=== PATIENT | female | born 1985 | race Caucasian/White ===

== ENCOUNTER → 2016-10-09 | Outpatient (CLI) | payer OTHER ==
[~2016-10-09] MED LIST: CALC500C3 PO; PRENTAB26 PO
[2016-10-09 14:56] LABS: URINE APPEARANCE CLEAR (CLEAR); URINE BILIRUBIN NEG (NEG); URINE COLOR YELLOW; URINE NITRITE NEG (NEG); URINE PH 6.5 (4.5-7.5); URINE SPECIFIC GRAVITY 1.011 (1.000-1.030); UROBILINOGEN NEG (NEG)
[2016-10-09 15:02] LABS: MANUAL MICROSCOPIC REQUIRED? NO; REVIEW REQ? NO
== END | disposition home or self-care (01) ==
LOC: C.LABSPEC 13:46
PROVIDERS: ATTEND Obstetrics & Gynecology
DX: O09.91 Supervision of high risk pregnancy, unspecified, first trimester (principal)

== ENCOUNTER → 2016-10-19 | Outpatient (CLI) | payer OTHER ==
[2016-10-22 07:27] LABS: CHLAMYDIA TRACH RNA*** NOT DETECTED (NOT DETECTED); GC (NEIS GONORRHOEAE)RNA** NOT DETECTED (NOT DETECTED)
== END | disposition home or self-care (01) ==
LOC: C.LABSPEC 13:53
PROVIDERS: ATTEND Obstetrics & Gynecology
DX: O09.91 Supervision of high risk pregnancy, unspecified, first trimester (principal); Z3A.00 Weeks of gestation of pregnancy not specified

== ENCOUNTER → 2016-10-31 | Outpatient (CLI) | payer OTHER ==
[2016-10-31 12:08] LABS: BASO % 0.3 %; BASO ABS # 0.02 K/uL (0-0.2); COMPLETE YES; EOS % 1.4 %; HEMATOCRIT 38.4 % (37-47); IG% 0.1 %; LYMPH % 22.7 %; LYMPH ABS # 1.74 K/uL (1.2-3.4); MEAN CORPUSCULAR HEMOGLOBIN 30.8 pg (25-34); MEAN CORPUSCULAR HGB CONC 36.2 g/dl (32-36); MEAN PLATELET VOLUME 10.6 fL (7.4-10.4); MONO % 5.6 %; NEUT % 69.9 %; PLATELET COUNT 187 K/uL (130-400); RED BLOOD COUNT 4.52 M/uL (4.2-5.4); WHITE BLOOD COUNT 7.66 K/uL (4.8-10.8)
== END | disposition home or self-care (01) ==
LOC: C.LAB1850 09:06
PROVIDERS: ATTEND Obstetrics & Gynecology
DX: O09.91 Supervision of high risk pregnancy, unspecified, first trimester (principal); Z3A.00 Weeks of gestation of pregnancy not specified

== ENCOUNTER → 2017-01-10 | Outpatient (CLI) | payer OTHER ==
[2017-01-10 15:25] LABS: GTGD 50 Grams
== END | disposition home or self-care (01) ==
LOC: C.LAB1850 12:42
PROVIDERS: ATTEND Obstetrics & Gynecology
DX: O09.92 Supervision of high risk pregnancy, unspecified, second trimester (principal)

== ENCOUNTER → 2017-04-30 | Outpatient (CLI) | payer OTHER ==
[~2017-04-30] MED LIST changes: +MTR600X PO; +OXYC-57 PO; +PREN1TAB29
--- NOTE | 2017-04-30 17:56 | HISTORY & PHYSICAL EXAMINATION ---
DATE OF ADMISSION: 04/30/2017 PREOPERATIVE DIAGNOSES: 1. Intrauterine at 37 and 2/7 weeks. 2. History of a previous vertical abdominal myomectomy in 2015. 3. Bilateral pyelectasis of the fetus on ultrasound. 4. Desires permanent surgical sterilization. HISTORY OF PRESENT ILLNESS: The patient is a 31-year-old white female 2, para 1-0-0-1 who presents for repeat section and sterilization given her history of previous vertical abdominal myomectomy. The patient's first was in 2014, she underwent a delivery in October of 2014 secondary to a large obstructing posterior 10 cm fibroid. Subsequent to that, the patient in 2015 had a large vertical incision over a posterior 10 cm fibroid for removal, it was recommended that she have repeat section prior to the onset of labor after 37 weeks in this . Her first was delivered of an 8 pound 4 ounce male. This has been complicated by pyelectasis noted on ultrasound, the last measurement on 04/05/2017 revealed the right pelvis measuring 6.2 mm and the left pelvis measuring 5.8 mm. The patient declined MFM consult. This was done at 32 weeks. The plan is for evaluation of the baby after delivery. Additionally, the patient is desirous of permanent surgical sterilization. The patient notes good movement, no labor symptoms. PAST OBSTETRICS AND GYNECOLOGICAL HISTORY: As noted above. She denies history of abnormal Pap smears or sexually transmitted illnesses. ALLERGIES: No known drug allergies, but she does have a SENSITIVITY TO LATEX. MEDICATIONS: Include vitamins. PAST MEDICAL HISTORY: The patient is healthy. Denies thyroid disease, asthma, heart disease, heart murmur, diabetes, kidney or liver problems. 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 PAST SURGICAL HISTORY: Includes the abdominal myomectomy in October of 2015, in October of 2014. She had keloiding of her vertical midline incision with both surgeries. SOCIAL HISTORY: The patient denies tobacco, alcohol or drug use. FAMILY HISTORY: Noncontributory. PHYSICAL EXAMINATION: GENERAL: This is a well-developed, well-nourished white female in no acute distress. VITAL SIGNS: Blood pressure 110/78, weight 192 pounds. NECK: Supple without thyromegaly or lymphadenopathy. CHEST: Clear to auscultation bilaterally. CARDIOVASCULAR: Regular rate and rhythm without murmurs, gallops or rubs. ABDOMEN: Gravid, soft and nontender. PELVIC: There is a vertical midline incision that is partially keloided. EXTREMITIES: Benign. PELVIC: Deferred. LABORATORY DATA: Blood type A positive, antibody negative, rubella immune, RPR nonreactive, hepatitis B negative, HIV negative, chlamydia and gonorrhea cultures negative, cystic fibrosis screening negative, GTT x2 negative, panorama screen low risk. GBS pending at the time of this dictation. ASSESSMENT: This patient is a 31-year-old 2, para 1-0-0-2, with a history of a section in October 2014 for an obstructing posterior fibroid and then a subsequent abdominal myomectomy in 2016. She presents today for section at 37 weeks given the previous history of vertical incisions on the uterus. Additionally, she desires permanent surgical sterilization. The risks of the procedure were discussed with the patient including the risks of bleeding that might require transfusion, infection, poor wound healing, damage to surrounding structures including bowel, bladder, vessels, nerves and ureters with need for further surgery, hospitalization or intervention, risk of urinary retention, risk of DVT or PE, risk of any surgery including heart attack, blood clot, stroke or . The other options for control were discussed with the patient including barriers, hormones, long-term reversible contraceptive options and vasectomy. We discussed the irreversibility of this procedure and the regret that she might have after having the procedure. We discussed that nothing is 100% and that if she conceived after this procedure there is a high risk of ectopic . The patient expresses understanding, desires to proceed with sterilization. Surgery is planned for May 06.
== END | disposition home or self-care (01) ==
LOC: C.LABSPEC 16:46
PROVIDERS: ATTEND Obstetrics & Gynecology
DX: O09.93 Supervision of high risk pregnancy, unspecified, third trimester (principal); Z3A.00 Weeks of gestation of pregnancy not specified

== ENCOUNTER 2017-05-06 05:41 | Inpatient (IN) | payer OTHER ==
[2017-05-06] VITALS (16 sets, daily range): BP systolic 107–122; BP diastolic 70–83; PULSE 71–85; TEMP 36.5–37.1; O2SAT 93–100; Ht 165.1 cm; Wt 86.4 kg
[~2017-05-06] VITALS: Ht 165.1 cm; Wt 86.4 kg
[~2017-05-06 05:41] MED LIST changes: -MTR600X PO; -OXYC-57 PO; -PREN1TAB29
[2017-05-06] MEDS ORDERED: CEFAZOLIN IV 2,000 MG in SYRINGE 0 ML IV SCH (06:00)
[2017-05-06] MEDS ORDERED: CITRIC ACID/SODIUM CITRATE 15 ML UDC PO SCH (06:00)
[2017-05-06 06:06] LABS: BASO % 0.2 %; BASO ABS # 0.02 K/uL (0-0.2); HEMATOCRIT 30.9 % (37-47); HEMOGLOBIN 10.6 g/dL (12.0-16.0); IG# 0.03 K/uL (0.00-0.02); LYMPH % 27.2 %; LYMPH ABS # 2.74 K/uL (1.2-3.4); MEAN CELL VOLUME 81.1 fL (80-100); MEAN CORPUSCULAR HEMOGLOBIN 27.8 pg (25-34); MEAN PLATELET VOLUME 10.5 fL (7.4-10.4); MONO ABS # 0.81 K/uL (0.11-0.59); NEUT % 63.3 %; NEUT ABS # 6.39 K/uL (1.4-6.5); PLATELET COUNT 146 K/uL (130-400); RED CELL DISTRIBUTION WIDTH CV 13.2 % (11.5-14.5); RED CELL DISTRIBUTION WIDTH SD 38.7 fL (36.4-46.3); WHITE BLOOD COUNT 10.09 K/uL (4.8-10.8)
[2017-05-06] MEDS: LACTATED RINGER'S 1000ML 1,000 ML IV SCH ×2 (06:11→06:57)
[2017-05-06] MEDS ORDERED: PREN1TAB29 (06:17)
[2017-05-06 06:22] LABS: MEAN CORPUSCULAR HGB CONC 34.3 g/dl (32-36)
[2017-05-06] MEDS ORDERED: FENTANYL CITRATE INJ 50 MCG/1 ML 2 ML VIAL ONE (07:42)
[2017-05-06] MEDS ORDERED: MoRPHine SULFATE PF 1 MG/ML 10 ML AMP/VIAL ONE (07:42)
[2017-05-06] MEDS ORDERED: ONDANSETRON INJ 2 MG/ML 2 ML VIAL ONE (08:30)
[2017-05-06] MEDS ORDERED: LACTATED RINGER'S 1000ML 1,000 ML IV SCH (08:44)
[2017-05-06] MEDS ORDERED: OXYCODONE/ACETAMINOPHEN 5-325 TAB PO PRN ×2 (08:45)
[2017-05-06] MEDS ORDERED: LANOLIN OINT EXT PRN (08:45)
[2017-05-06] MEDS ORDERED: DIPHTHERIA/TETANUS/PERTUSSIS 0.5 ML SYR/VIAL IM. ONE (08:45)
[2017-05-06] MEDS ORDERED: SUPERCREAM 0.870 % 15GM JAR EXT PRN (08:45)
[2017-05-06] MEDS ORDERED: MEPERIDINE HCL 50 MG/ML CARP IV PRN ×2 (08:45)
[2017-05-06] MEDS ORDERED: DiphenhydrAMINE HCL 50 MG/ML VIAL IV PRN ×2 (08:45→09:45)
[2017-05-06] MEDS ORDERED: DC PCA PRN (08:45)
[2017-05-06] MEDS ORDERED: KETOROLAC TROMETHAMINE 30 MG/ML VIAL IV. PRN ×3 (08:45→09:45)
[2017-05-06] MEDS ORDERED: KETOROLAC TROMETHAMINE 30 MG/ML VIAL ONE (08:46)
[2017-05-06] MEDS ORDERED: EpHEDrine SULFATE 50MG/5ML SYR ONE (08:48)
[2017-05-06] MEDS ORDERED: PHENYLEPHRINE 100MCG/ML 5ML SYR ONE (08:48)
--- NOTE | 2017-05-06 09:03 | [facility] Post Operative Brief Note ---
Immediate Operative Summary Operative Date May 06, 2017. Pre-Operative Diagnosis 1. IUP at 37 2/7 weeks. 2. History of previous vertical abdominal myomectomy in 2016. 3. Bilateral Pyelectasis of fetus on ultrasound 4. Desires permanent surgical sterilization. Post-Operative Diagnosis Same Procedure(s) Performed Repeat low uterine transverse caesarean section with the of a live male child at 0810. In addition, bilateral fimbriectomy was performed. Surgeon Dr. Va Newman Audio Installer Surgeon(s) Dr. Ronald Bell, Dr. Harriett Sheehan Estimated Blood Loss 600ml Findings Viable male. Ampullary portion of the right fallopian tube directly adhered to the right ovary. Otherwise, normal appearing uterus, fallopian tubes and ovaries. Specimens A; Placenta-hold B; Cord blood C: Cord gases D: Portion of R Fallopian tube E: Portion of L Fallopian tube Drains duckworth Anesthesia spinal Complication(s) None Disposition L&D
--- NOTE | 2017-05-06 09:23 | OPERATIVE REPORT ---
DATE OF OPERATION: 05/06/2017 PREOPERATIVE DIAGNOSES: 1. Intrauterine at 37 and 2/7 weeks. 2. History of previous section. 3. History of previous 10-cm posterior myomectomy. 4. Desires permanent surgical sterilization. POSTOPERATIVE DIAGNOSES: Same. PROCEDURES: 1. Repeat lower transverse section. 2. Bilateral fimbriectomy. SURGEON: Dr. Va Newman. ANESTHESIA: Spinal. ESTIMATED BLOOD LOSS: 600 mL. FLUIDS: 1000 mL. URINE OUTPUT: 150 mL of clear yellow urine drained from the bladder at the end of the procedure. INDICATIONS: The patient is a 2, para 1-0-0-1 with a history of a previous section and then a subsequent myomectomy of a 10-cm posterior fibroid that breached the uterine cavity. She therefore presents for repeat section at 37 weeks prior to the onset of labor. FINDINGS: Normal uterus, tubes, and ovaries were noted bilaterally. However, there were adhesions of the right tube to the right ovary, making a [place] tubal ligation difficult. Therefore, bilateral fimbriectomy was performed. COMPLICATIONS: None. DRAINS: Segura. DISPOSITION: To recovery room in stable condition. DESCRIPTION OF PROCEDURE: The patient was taken to the operating room, where she was identified verbally and by bracelet. She was seated on the operating table, where a spinal anesthetic was placed. She was then placed in dorsal supine position with leftward tilt. A Segura catheter was placed sterilely. She was prepped and draped in normal sterile fashion. The anesthetic was tested and found to be adequate. A time-out was held identifying correct patient, procedure, positioning and antibiotics. Attention was then turned to the abdomen, where the patient's vertical midline keloid scar was excised using the knife. The knife was then used to take the midline incision down to the fascia. The fascia was incised in the midline both with the knife and scissors. The muscles were bluntly and the peritoneum was entered by grasping bilaterally with snaps and entering with scissors. There were no adhesions noted to the anterior abdominal wall. Therefore, the peritoneum was taken superiorly and inferiorly with good visualization of the bladder. The incision was stretched. The bladder blade was placed. The vesicouterine peritoneum was identified, grasped with a snap, entered with scissors and the bladder flap was created digitally. The bladder blade was replaced. Hysterotomy incision was scored with the knife. The uterus was entered with a snap. Clear fluid was noted. The incision was stretched with the cutting machine operator helper's fingers. The cutting machine operator helper's hand was gently placed in the uterus and the head was delivered through. The nose and mouth were bulb suctioned. Loose nuchal cord x1 was reduced and rest of the infant was then delivered without difficulty. The was vigorous and crying on the surgical field. The nose and mouth were again bulb suctioned. The cord was clamped and cut. The infant was handed off to waiting pediatricians for drying and attention. Cord blood and segment were obtained. The placenta was manually extracted. The uterus was exteriorized and cleared of all clot and debris with moistened laparotomy sponges. The hysterotomy incision was repaired with 2 layers, the first a running locked layer of 0 Vicryl and the second in an imbricating layer of 0 Vicryl. Attention was then turned to the tubes. On the right, the tube was in direct adherence to the ovary and making it difficult to perform a [place] tubal ligation. Therefore, a fimbriectomy was performed on the right. The end of the tube was grasped with a curved Darlene. The tube was removed. It was suture ligated with a stick tie of 3-0 Vicryl and a free tie. This was performed in a similar fashion on the left side, where the fimbriated end was clamped using a curved Darlene. It was removed with scissors and as stick tied with 3-0 Vicryl and then a free tie. Hemostasis was noted to be excellent. The incision was again inspected and found to be hemostatic. The uterus was reanteriorized. An area of oozing was attended to with 1 [id number] suture of 0 Vicryl. Hemostasis was then noted to be excellent. The fascia was then reapproximated with #1 PDS starting on the edges and meeting in the midline. The subcuticular tissue was copiously irrigated with warm normal saline and bleeding was attended to with Bovie electrocautery. The edges were undermined using the Bovie electrocautery. Then, using horizontal mattress suture of 2-0 plain gut suture, the subcuticular tissue was reapproximated. The skin was then closed with a subcuticular stitch of 4-0 Vicryl. The procedure was thus terminated. All sponge, lap, and needle counts were correct x2. The patient tolerated the procedure well and was taken to recovery room in stable condition. I attest to the content of the Intraoperative Record and any orders documented therein. Any exception s are noted below.
[2017-05-06] MEDS ORDERED: CARBOPROST TROMETHAMINE 250 MCG/ML AMP IM ONE (09:28)
[2017-05-06] MEDS ORDERED: SODIUM CHLORIDE 0.9% 1000ML 1,000 ML IV PRN (09:33)
[2017-05-06] MEDS ORDERED: LACTATED RINGER'S 1000ML 500 ML IV PRN (09:33)
[2017-05-06] MEDS ORDERED: NALOXONE HCL INJ 1 MG in SODIUM CHLORIDE 0.9% 1000ML 1,000 ML IV PRN ×4 (09:33)
[2017-05-06] MEDS ORDERED: NALOXONE HCL INJ 0.08 MG in SYRINGE 1.8 ML IV PRN (09:33)
[2017-05-06] MEDS ORDERED: ONDANSETRON INJ 2 MG/ML 2 ML VIAL IV PRN ×2 (09:45)
[2017-05-06] MEDS ORDERED: EpHEDrine SULFATE INJ 50 MG/ML AMP IV PRN ×2 (09:45)
[2017-05-06] MEDS ORDERED: ACETAMINOPHEN 1000 MG/100 ML IV IV ONE (09:45)
[2017-05-06] MEDS ORDERED: NO NARCOTICS OR SEDATIVES SCH (09:45)
[2017-05-06] MEDS ORDERED: NALOXONE HCL 0.4 MG/1 ML VIAL/CARP IV PRN (09:45)
[2017-05-06] MEDS ORDERED: NALBUPHINE HCL INJ 10 MG/ML AMP IV PRN (09:45)
[2017-05-06] MEDS ORDERED: PROMETHAZINE HCL INJ 12.5 MG in SODIUM CHLORIDE 0.9% 50ML 50 ML IV PRN (09:45)
[2017-05-06] MEDS ORDERED: MoRPHine SULFATE 2 MG/ML CARP IV PRN (09:45)
[2017-05-06] MEDS ORDERED: ATROPINE SULFATE 0.1 MG/ML 5ML SYR IV PRN (09:45)
[2017-05-06] MEDS ORDERED: PROMETHAZINE HCL INJ 25 MG in SODIUM CHLORIDE 0.9% 50ML 50 ML IV PRN (09:45)
[2017-05-06] MEDS ORDERED: MoRPHine SULFATE PF 1 MG/ML 10 ML AMP/VIAL EPI PRN (09:45)
--- NOTE | 2017-05-06 10:41 | Anesthesiology Progress Note ---
Anesthesia Post Op Note Date & Time May 06, 2017 at 10:41 Notes Mental Status: alert / awake / arousable, participated in evaluation Nausea / Vomiting: adequately controlled Pain: adequately controlled Airway Patency, RR, SpO2: stable & adequate BP & HR: stable & adequate Hydration State: stable & adequate Neuraxial Anesthesia: was administered, sensory block is resolving Anesthetic Complications: no major complications apparent
[2017-05-06] MEDS: OXYTOCIN INJ 20 UNITS in LACTATED RINGER'S 1000ML 1,000 ML IV SCH ×2 (10:42→19:06)
[2017-05-06] MEDS: SIMETHICONE 80 MG CHEW PO SCH ×3 (13:25→20:55)
[2017-05-06] MEDS: DOCUSATE SODIUM 100 MG CAP PO SCH (20:55)
[2017-05-07] VITALS (12 sets, daily range): BP systolic 111–120; BP diastolic 76–87; PULSE 73–88; TEMP 36.4–37.3; O2SAT 94–98
--- NOTE | 2017-05-07 06:13 | Discharge Instructions ---
Discharge Instructions Date of Service May 07, 2017. Admission Reason for Admission: Previous Caesarean Section Discharge Discharge Diagnosis / Problem: recovery from csection Discharge Goals Goal(s): Routine recovery after Medications Continue Dispensed Medications: supercream, dermaplast, tucks, lansinoh Activity Recommendations Activity Limitations: per Instructions/Follow-up section . Instructions / Follow-Up Instructions / Follow-Up ACTIVITY RECOMMENDATIONS: * Gradual return to full activity over the next 2-3 weeks. * No lifting - nothing heavier than baby over the next 2-3 weeks. * Do not engage in vigorous exercise, sexual activity or sports until cleared by your physician. * Do not drive or operate any motorized equipment until cleared by your physician. * You may shower/bathe daily. MEDICATIONS: For discomfort or pain, you may use Acetaminophen (Tylenol), Ibuprofen (Advil), or Naproxen (Aleve) following the package directions. For constipation you may use Colace following the package directions. BREAST CARE: If you are not breast feeding: * Wear a supportive bra 24 hours a day for one to two weeks. * Avoid stimulating your breasts and nipples as much as possible during the first few weeks after delivery. * When taking a shower, have the warm water hit your back, not breasts. * When your breasts feel full, apply ice packs. Usually three to four times a day helps ease the discomfort. * Take a mild pain medication (Tylenol / Motrin) when you are uncomfortable. If breast feeding: * Use breast milk to lubricate nipples. Lansinoh cream may be used for sore nipples. You do not need to remove cream prior to breast feeding. If using a different brand of cream, check the label for directions regarding removal of cream prior to nursing. * Wear a supportive bra. * If having problems with breasts or breast feeding, call a systems consultant or your health care provider. SPECIAL CARE INSTRUCTIONS: When you are discharged from the hospital, it is important for you to follow the instructions listed below: * During the first week at home, you should be able to care for yourself and your baby. In addition, the usual light household activities are encouraged. * Limit your activities to the way you feel. Do not try to clean the house or move furniture. Be sensible. * If you actively engage in sports and have done so up until the time of your delivery, you may resume these activities as soon as you feel able. This may take up to one month or even longer. Use good judgment. * Continue to take your vitamins for at least six weeks after the of your baby. * Your diet need not be limited unless you were on a special diet before your delivery. Breast-feeding mothers need around 2500 calories per day and at least 64-80 ounces of fluid per day (8 to 10 glasses). * You should eat foods from the four major food groups. Crash diets or fad diets are to be avoided. Eating lean meats, fresh fruits and vegetables, low-fat dairy products, high fiber foods and a regular exercise program, will help you get back to your pre- weight without putting your health at risk. * Constipation is sometimes a problem after delivery. Take a mild laxative as needed. If breast feeding, Milk of Magnesia is acceptable to use. You may use a suppository or Fleets enema. * A daily shower or tub bath is suggested. Wash incision daily with warm soapy water and pat dry. It doesn't need to be covered unless drainage is present. * A bloody vaginal discharge will usually continue until around four weeks . A small amount of bleeding may continue for as long as six weeks. Vaginal discharge changes from the bright red bleeding after delivery to pink then brownish and finally yellowish-pink before becoming white and disappearing. * Bleeding may increase with activity. Your first period may come in 4-8 weeks. If you are breast feeding, your period may be delayed even longer. * [place] (sex) can begin whenever both you and your partner feel comfortable and do not have any form of genital infection. It is recommended that you wait at least six weeks for internal and external healing to occur. If you have questions, please talk to your health care practitioner. A condom should be used to prevent infection and . * Foreplay, gentle intercourse and lubrication is very important the first several times to prevent pain. A water-based lubricant such as K-Y jelly or Astroglide may be used. * If you have RH negative blood and your baby is RH positive, you will receive RHOGAM by injection prior to discharge. The nurse will give you a card to keep with you that has the date and place that you received RHOGAM after delivery. * During your care, you had a Rubella screen done to check for the presence of rubella antibodies in your blood. If your test was negative, you will receive a Rubella vaccine prior to discharge. This vaccine may cause a fever, soreness at the injection site and flu-like symptoms. If these symptoms persist, notify your health care practitioner. is not advised for one month after a Rubella vaccine. * Verbalizes understanding of car seat law as reviewed with patient nursing. * Car Seat hand-out given and reviewed with patient by nursing. * Shaken baby information reviewed with patient by nursing. Call you doctor if: * Heavy bleeding (saturating several pads an hour) or passing clots the size of your fist. * A fever >101 degrees F (38.3 degrees C) on two occasions four hours apart and /or chills. * Unusual pain in the pelvic or vaginal areas. * Call the doctor for any increased redness, drainage or swelling around the incision and any pain unrelieved by prescribed pain medication. * "Baby Blues" lasting longer than two weeks. If you have any questions or concerns, call your health care practitioner at . FOLLOW UP VISIT: * Please call the office at to schedule a 6 week examination. It is important you keep this appointment. It is important for you to make arrangements for either yearly or twice yearly check-ups thereafter. Current Hospital Diet Patient's current hospital diet: Clear Liquid Diet Discharge Diet Recommended Diet: Regular OB Diet Procedures Procedures Performed: Repeat low uterine transverse caesarean section with the of a live male child at 0810. In addition, bilateral fimbriectomy was performed. Pending Studies Studies pending at discharge: no Medical Emergencies . Who to Call and When: Medical Emergencies: If at any time you feel your situation is an emergency, please call [phone] immediately. . Non-Emergent Contact Non-Emergency issues call your: Management Technician . . "Provider Documentation" section prepared by Erlin Sheehan. . VTE Core Measure Inpt VTE Proph given/why not?: SCD's
--- NOTE | 2017-05-07 06:17 | OB/GYN Progress Note ---
NURSES DIRECTOR Progress Note Date of Service May 07, 2017. Subjective conversation w/ patient, physical exam, chart review, lab review Ambulation: limited ambulation Voiding: duckworth catheter in place (duckworth catheter removed this morning ) Passing Gas: Yes Diet Tolerance: Clear Liquids, Nausea/Vomiting (yesterday, subsided today) Lochia: Moderate Feeding Type: Breast Feeding Review of Systems Constitutional: No fever Respiratory: No cough, No shortness of breath Cardiac: No chest pain, No palpitations Abdomen: + nausea, + vomiting, No pain Objective Vital Signs Date Time Temp Pulse Resp B/P (MAP) Pulse Ox O2 Delivery O2 Flow Rate FiO2 05/07/17 05:00 16 94 05/07/17 04:00 16 94 05/07/17 03:53 37.3 88 18 112/87 (95) 96 Room Air 05/07/17 03:00 16 94 05/07/17 02:00 18 94 05/07/17 01:00 16 94 05/07/17 00:00 94 Room Air 05/07/17 00:00 37.3 84 16 114/77 (89) Room Air 05/06/17 23:00 18 93 05/06/17 22:00 20 98 05/06/17 21:00 20 98 05/06/17 20:00 20 97 05/06/17 19:30 98 Room Air 05/06/17 19:30 37.1 85 20 117/77 (90) Room Air 05/06/17 19:00 20 98 05/06/17 18:25 18 98 05/06/17 17:25 16 95 05/06/17 16:25 18 100 05/06/17 15:35 99 Room Air 05/06/17 15:35 36.5 84 18 122/83 (96) 99 Room Air 05/06/17 15:25 16 99 05/06/17 14:25 16 97 05/06/17 13:25 18 98 05/06/17 12:25 18 98 05/06/17 12:25 36.8 75 18 108/71 (83) 98 Room Air 05/06/17 11:25 18 99 05/06/17 11:25 36.5 71 18 107/70 (82) 99 Room Air 05/06/17 11:25 99 Room Air Physical Exam General Appearance: WELL-APPEARING, WD/WN, NO APPARENT DISTRESS Respiratory/Chest: lungs clear, normal breath sounds Cardiovascular: regular rate, rhythm, no murmur Abdomen: soft, no organomegaly Fundus: Firm Incision Description: Clean, Dry & Intact Extremities: normal inspection, no pedal edema, no calf tenderness Laboratory Results Last 24 Hours Test 05/07/17 06:00 Assessment and Plan Post-Op Day Number: 1 Continue Routine Care: 31 yo female now 2 PMH significant for myomectomy for large fibroid (10/2015 ) Delivered @ 37.3 wks. Pt is GBS-/A+/RI. Reviewed vitals, stable today. Hgb 10.6 on admission, today is pending. Patient is doing well, but complains of nausea and vomiting yesterday afternoon. Has since tolerating clear liquid diet. Pt also c/o pruritus. Plan; 1. Recovery from - just removed duckworth; normal output and color. Encourage patient to ambulate 2. Pruritus-2/2 to anesthesia histamine reaction--PRN Benadryl 3. Nausea--Advance patients diet to regular OB, PRN Zofran Resident Physician Supervision Note: I interviewed and examined the patient. Discussed with Dr. Sheehan and agree with findings and plan as documented in the note. Any exceptions or clarifications are listed here: discussed surgery and findings with patient Documented By: Ronald Bell
[2017-05-07] MEDS ORDERED: DC INTRASPINAL MORPHINE ONE (07:00)
[2017-05-07 07:02] LABS: BASO % 0.2 %; BASO ABS # 0.02 K/uL (0-0.2); EOS % 0.3 %; EOS ABS # 0.03 K/uL (0-0.5); HEMATOCRIT 28.5 % (37-47); HEMOGLOBIN 9.6 g/dL (12.0-16.0); IG# 0.04 K/uL (0.00-0.02); LYMPH % 12.9 %; LYMPH ABS # 1.49 K/uL (1.2-3.4); MEAN CELL VOLUME 81.9 fL (80-100); MEAN CORPUSCULAR HEMOGLOBIN 27.6 pg (25-34); MEAN CORPUSCULAR HGB CONC 33.7 g/dl (32-36); MEAN PLATELET VOLUME 10.7 fL (7.4-10.4); MONO % 7.9 %; MONO ABS # 0.91 K/uL (0.11-0.59); NEUT % 78.4 %; NEUT ABS # 9.02 K/uL (1.4-6.5); PLATELET COUNT 127 K/uL (130-400); RED CELL DISTRIBUTION WIDTH CV 13.5 % (11.5-14.5); RED CELL DISTRIBUTION WIDTH SD 40.1 fL (36.4-46.3); WHITE BLOOD COUNT 11.51 K/uL (4.8-10.8)
[2017-05-07] MEDS: IBUPROFEN 600 MG TAB PO PRN ×3 (07:56→23:31)
[2017-05-07] MEDS: SIMETHICONE 80 MG CHEW PO SCH ×4 (07:56→19:34)
[2017-05-07] MEDS: PRENATAL VITAMIN TAB PO SCH (07:57)
[2017-05-07] MEDS: DOCUSATE SODIUM 100 MG CAP PO SCH ×2 (07:57→19:34)
[2017-05-08] MEDS: IBUPROFEN 600 MG TAB PO PRN (06:11)
[2017-05-08 06:15] LABS: HEMATOCRIT 30.5 % (37-47)
[2017-05-08] MEDS ORDERED: MTR600X PO (06:38)
[2017-05-08] MEDS ORDERED: OXYC-57 PO (06:38)
--- NOTE | 2017-05-08 06:39 | OB/GYN Progress Note ---
FOREPART ROUNDER Progress Note Date of Service May 08, 2017. Subjective conversation w/ patient, physical exam, chart review, lab review Ambulation: ambulating normally Voiding: no voiding problems Passing Gas: Yes Diet Tolerance: Regular Diet Lochia: Small Feeding Type: Breast Feeding (patient is currently pumping, undecided long term) Review of Systems Constitutional: No fever Respiratory: No cough, No shortness of breath Cardiac: No chest pain Abdomen: No nausea, No vomiting Female : No dysuria Objective Vital Signs Date Time Temp Pulse Resp B/P (MAP) Pulse Ox O2 Delivery O2 Flow Rate FiO2 05/07/17 23:35 36.4 79 18 111/76 (88) Room Air 05/07/17 23:35 Room Air 05/07/17 15:40 Room Air 05/07/17 15:40 36.4 76 20 115/78 (90) Room Air 05/07/17 12:00 37.1 73 18 111/76 (88) Room Air 05/07/17 08:00 Room Air 05/07/17 07:57 36.8 87 18 120/81 (94) Room Air Physical Exam General Appearance: WELL-APPEARING, WD/WN, NO APPARENT DISTRESS Respiratory/Chest: lungs clear, normal breath sounds Cardiovascular: regular rate, rhythm, no murmur Fundus: Firm, Relation to Umbilicus (at the umbilicus ) Incision Description: Clean, Dry & Intact Extremities: normal inspection, no pedal edema, no calf tenderness Laboratory Results Last 24 Hours Test 05/08/17 05:56 Hemoglobin 10.0 g/dL Hematocrit 30.5 % Assessment and Plan Post-Op Day Number: 2 Continue Routine Care: 31 yo female, now 2, PMH od myomectomy of large fibroid, csection @37 wk, 3 days Post op day 2. Pt is GBS-/A+/RI. Patient is doing well clinically; ambulating, tolerating reg diet, small bleeding. Vitals reviewed, WNL. Patient hgb 10.9 on admission, 9.6 (05/07/2017), today is pending. Plan; 1. Recovery from ; patient is recovering well. Dc planning for this afternoon. Discussed follow up and instructions with the patient. Discharge today following lunch. Resident Physician Supervision Note: I was present with Dr. Sheehan during the history and exam. I discussed the case with the resident and agree with the findings and plan as documented in the note. Any exceptions or clarifications are listed here: she is doing well. wants to go home. has good pain mgmt. breast pumping. does not plan to breast feed. she is antwon po, voiding and ambulating without problem. abd soft ff at 2 down incision c/d/i with steris(dried blood), ext nt calves. pt ok to discharge. reviewed instructions. f/u 6 wks pp check. Documented By: Perla Shi
[2017-05-08 07:40] VITALS: BP 119/73; PULSE 65; TEMP 36.6
[2017-05-08] MEDS: SIMETHICONE 80 MG CHEW PO SCH (07:45)
[2017-05-08] MEDS: PRENATAL VITAMIN TAB PO SCH (07:45)
[2017-05-08] MEDS: DOCUSATE SODIUM 100 MG CAP PO SCH (07:45)
[2017-05-08 11:25] VITALS: BP_DIAS 73; PULSE 65; TEMP 36.6
== END 2017-05-08 14:05 | disposition home or self-care (01) | DRG 766 ==
LOC: C.LD 05:41 → EDSTATUS 09:00 → C.OBG 11:25
PROVIDERS: ADMIT Obstetrics & Gynecology; ATTEND Obstetrics & Gynecology
PROC: 10D00Z1 Extraction of Products of Conception, Low, Open Approach (ICD-10-PCS; principal; 2017-05-06 07:30)
PROC: 0UL70ZZ Occlusion of Bilateral Fallopian Tubes, Open Approach (ICD-10-PCS; principal; 2017-05-06 07:30)
DX: O34.599 Maternal care for other abnormalities of gravid uterus, unspecified trimester (principal); O75.82 Onset (spontaneous) of labor after 37 completed weeks of gestation but before 39 completed weeks gestation, with delivery by (planned) cesarean section; O34.211 Maternal care for low transverse scar from previous cesarean delivery; O69.81X0 Labor and delivery complicated by cord around neck, without compression, not applicable or unspecified; O28.3 Abnormal ultrasonic finding on antenatal screening of mother; Z30.2 Encounter for sterilization; Z98.890 Other specified postprocedural states; Z87.42 Personal history of other diseases of the female genital tract; Z3A.37 37 weeks gestation of pregnancy; Z37.0 Single live birth